=== PATIENT | male | born 1975 | race Caucasian/White ===

== ENCOUNTER 2022-03-09 08:38 | Outpatient (CLI) | payer OTHER, SELFPAY ==
[2022-03-09 15:18] LABS: Albumin* 4.7 g/dL (3.3-5.0)
[2022-03-09 15:20] LABS: Cholesterol* 153 mg/dL (90-199)
[2022-03-09 15:21] LABS: Alanine Aminotransferase* 29 U/L (4-50); Alkaline Phosphatase* 107 U/L (40-150); Aspartate Amino Transferase* 24 U/L (12-35); Bilirubin Direct* 0.2 mg/dL (0.0-0.5); Bilirubin Total* 0.8 mg/dL (0.1-1.5); HDL Cholesterol* 31 mg/dL (>=40); LDL Cholesterol Calculated 86 mg/dL (<100); Total Protein* 7.5 g/dL (6.0-8.3); Triglycerides* 180 mg/dL (40-149)
[2022-03-09 15:50] LABS: PSA Screen* 0.42 ng/mL (0.10-4.00)
[2022-03-11 11:51] LABS: Sex Hormone Binding Globulin 30 nmol/L (17-56); Testosterone, Adult Male 314 ng/dL (300-890); Testosterone, Free Calculation 60 pg/mL (47-244); Testosterone, Percentage Free 1.9 % (1.6-2.9)
== END 2022-03-09 08:39 | disposition home or self-care (01) ==
PROVIDERS: PCP Family Medicine; Visit Provider Family Medicine
DX: Z00.00 Encounter for general adult medical examination without abnormal findings (principal); F41.8 Other specified anxiety disorders; I10 Essential (primary) hypertension; R53.83 Other fatigue; Z12.5 Encounter for screening for malignant neoplasm of prostate; Z13.6 Encounter for screening for cardiovascular disorders
CPT/HCPCS: 80061; 80076; 84153; 84270; 84402; 84403

== ENCOUNTER 2023-01-12 16:43 | Outpatient (CLI) | payer OTHER, SELFPAY | END 2023-01-12 16:44 | disposition home or self-care (01) | LOC: LKVREF 16:44 | PROVIDERS: PCP Family Medicine; Visit Provider Family Medicine | DX: E87.6 Hypokalemia (principal); R53.83 Other fatigue; R63.5 Abnormal weight gain | CPT/HCPCS: 84443 ==

== ENCOUNTER 2023-02-15 16:29 | Outpatient (CLI) | payer OTHER, SELFPAY | END 2023-02-15 16:30 | disposition home or self-care (01) | LOC: LKVREF 16:30 | PROVIDERS: PCP Family Medicine; Visit Provider Family Medicine | DX: E87.6 Hypokalemia (principal); R63.5 Abnormal weight gain; R53.83 Other fatigue; I10 Essential (primary) hypertension; I49.9 Cardiac arrhythmia, unspecified; R60.0 Localized edema | CPT/HCPCS: 80053; 80061; 83880; 84270; 84402; 84403 ==

== ENCOUNTER 2023-03-14 07:30 | Outpatient (CLI) | payer OTHER, SELFPAY ==
[2023-03-14] MEDS: PERFLUTREN LIPID MICROSPHERES 2 ML VIAL IV (09:00)
--- NOTE | 2023-03-14 09:09 | PC.NURSE ---
20G started in right hand, Definity given for echo, iv remoced intact.
== END 2023-03-14 07:31 | disposition home or self-care (01) ==
LOC: RAD 07:32
PROVIDERS: PCP Family Medicine; Visit Provider Family Medicine
DX: I49.9 Cardiac arrhythmia, unspecified (principal)
CPT/HCPCS: 93306; Q9957

== ENCOUNTER 2023-09-17 08:17 | Outpatient (CLI) | payer OTHER, SELFPAY | END 2023-09-17 08:18 | disposition home or self-care (01) | LOC: NFLDREF 09-19 00:14 | PROVIDERS: PCP Family Medicine; Referring Provider Family Medicine; Visit Provider Family Medicine | DX: R79.89 Other specified abnormal findings of blood chemistry (principal) | CPT/HCPCS: 80053; 84270; 84402; 84403 ==

== ENCOUNTER 2024-04-07 14:08 | Emergency (ER) | payer OTHER, SELFPAY ==
--- OUTSIDE RECORDS SUMMARY | 2024-04-07 14:11 | XMS_ITS | Clinical Summary ---
Author Organization [facility] Address [address] [address] Phone Care Team Providers Care Sausage Stringer Name Role Phone Unavailable Primary Care Provider Unavailabl e Allergies No known active allergies Medications No known medications Active Problems No known active problems Social History Tobacco Use Types Packs/Day Years Used Date Smoking Tobacco: Never Assessed Sex and Gender Information Value Date Recorded Sex Assigned at Not on file Legal Sex Male 5:42 PM PATTERN DESIGNER Gender Identity Not on file Sexual Orientation Not on file Obstetrics History Last Filed Vital Signs Vital Sign Reading Time Taken Comments Blood Pressure 174/103 04/10/2022 7:30 PM PATTERN DESIGNER Pulse 90 04/10/2022 6:07 PM PATTERN DESIGNER Temperature 36.6 C (97.8 F) 04/10/2022 6:07 PM PATTERN DESIGNER Respiratory Rate 18 04/10/2022 6:07 PM PATTERN DESIGNER Oxygen Saturation 99% 04/10/2022 6:07 PM PATTERN DESIGNER Inhaled Oxygen Concentration - - Weight 95.3 kg (210 lb) 04/10/2022 6:07 PM PATTERN DESIGNER Height 167.6 cm (5' 6) 04/10/2022 6:07 PM PATTERN DESIGNER Body Mass Index 33.89 04/10/2022 6:07 PM PATTERN DESIGNER Plan of Treatment Health Maintenance Due Date Last Done Comments CT Colonography 1975 Cologuard 1975 Colonoscopy 1975 Colorectal Cancer Screening 1975 FIT/FOBT 1975 Sigmoidoscopy 1975 Hepatitis B Vaccine (Standin g Order) (1 of 3 - 19+ 3-dose series) 07/31/1994 PERTUSSIS (Standing Order) 07/31/1994 TETANUS (Standing Order) 07/31/1994 COVID-19 Vaccine (2023-2 5 season) 2023 Influenza Vaccine Seasonal (Standing Order) (#1) 2023 HPV Vaccine (Standing Order) Aged Out No longer eligible based on patient's age to complete this topic Pneumococcal/PCV20 Vaccine: Pediatrics (2-5 yrs) and At-Risk Patients (6-49 yrs) (Standing Order) Aged Out No longer eligible b ased on patient's age to complete this topic Insurance FRANKLIN Cunningham [id number] [facility]
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
--- OUTSIDE RECORDS SUMMARY | 2024-04-07 14:11 | XMS_ITS | Encounter Summary ---
Author Organization [facility] Address [address] [place] [address] Care Team Providers Care Office Services Manager Name Role Phone Jose Hutson MD Primary Care Provider [phone] [phone] Encounter Details Date Type Department Care Team (Late st Contact Info) Description 07/24/2016 Consent for Procedure/Treatme nt [facility] INFORMED CONSENT RECORD Social History Tobacco Use Types Packs/Day Years Used Date Smoking Tobacco: Never Alcohol Use Standard Drinks/Week Comments Yes 0 (1 standard drink = 0.6 oz pur e alcohol) Rarely Sex and Gender Information Value Date Recorded Sex Assigned at Not on file Gender Identity Not on file Sexual Orientation Not on file documented as of this encounter Plan of Treatment Not on file documented as of this encounter Visit Diagnoses Not on filedocumented in this encounter Additional Health Concerns Infection Onset Date Last Indicated Resolved Time R/O COVID19 09/02/2019 09/02/2019 09/02/2019 10:1 7 PM CDT COVID19 09/02/2019 09/02/2019 09/23/2019 3:17 AM CDT documented as of this encounter Care Teams Office Services Manager Relationship Specialty Start Date End Date Jose Hutson MD [address] [place] [address] PCP - General Family Practice 07/23/16 documented as of this encounter
--- OUTSIDE RECORDS SUMMARY | 2024-04-07 14:11 | XMS_ITS | Encounter Summary ---
Author Organization [facility] Address [address] [place] [address] Care Team Providers Care Web Ui Software Engineer Name Role Phone Jose Hutson MD Primary Care Provider [phone] [phone] Encounter Details Date Type Department Care Team (Late st Contact Info) Description 09/23/2019 Refill Order [facility] 435 [facility] [place], [place] [id number] Gunnar Bautista MD 435 [place], [place] [id number] Social History Tobacco Use Types Packs/Day Years [...] documented as of this encounter Visit Diagnoses Diagnosis Encounter for long-term (current) use of medications- Primary Encounter for long-term (current) use of other medications documented in this encounter Additional Health Concerns Infection Onset Date Last Indicated Resolved Time COVID19 09/02/2019 09/02/2019 09/23/2019 3:17 AM CDT documented as of this encounter Care Teams Web Ui Software Engineer Relationship Specialty Start Date End Date Jose Hutson MD [address] [place] [address] PCP - General Family Practice 07/23/16 documented as of this encounter
--- OUTSIDE RECORDS SUMMARY | 2024-04-07 14:11 | XMS_ITS | Encounter Summary ---
Author Organization [facility] Address [address] [place] [address] Care Team Providers Care Personnel Representative Name Role Phone Jose Hutson MD Primary Care Provider [phone] [phone] Encounter Details Date Type Department Care Team (Late st Contact Info) Description 01/24/2017 Consent for Procedure/Treatme nt [facility] INFORMED [...] documented as of this encounter Care Teams Personnel Representative Relationship Specialty Start Date End Date Jose Hutson MD [address] [place] [address] PCP - General Family Practice 07/23/16 documented as of this encounter
--- OUTSIDE RECORDS SUMMARY | 2024-04-07 14:11 | XMS_ITS | Encounter Summary ---
Author Organization [facility] Address [address] [place] [address] Care Team Providers Care Keyboarding Clerk Name Role Phone Jose Hutson MD Primary Care Provider [phone] [phone] Encounter Details Date Type Department Care Team (Late st Contact Info) Description 01/08/2019 Refill Order [facility] [address] [address] [place] [address]. [place], [place] [phone] Gunnar Bautista MD 435 [place], [place] [phone] Social History Tobacco Use Types Packs/Day Years [...] documented as of this encounter Care Teams Keyboarding Clerk Relationship Specialty Start Date End Date Jose Hutson MD [address] [place] [address] PCP - General Family Practice 07/23/16 documented as of this encounter
--- OUTSIDE RECORDS SUMMARY | 2024-04-07 14:11 | XMS_ITS | Encounter Summary ---
[facility] Organization [facility] Address [address] [place] [address] Care Team Providers Care Support Group Manager Name Role Phone Jose Hutson MD Primary Care Provider [phone] [phone] Encounter Details Date Type Department Care Team (Late st Contact Info) Description 01/23/2018 Correspondence [facility] Radiology [address] [place] [address] Radiology, Provider MRI SAFETY SHEET AND COMPATIBILITY FORM Social History Tobacco Use Types Packs/Day Years [...] documented as of this encounter Care Teams Support Group Manager Relationship Specialty Start Date End Date Jose Hutson MD [address] [place] [address] PCP - General Family Practice 07/23/16 documented as of this encounter
--- OUTSIDE RECORDS SUMMARY | 2024-04-07 14:11 | XMS_ITS | Clinical Summary ---
Author Organization [facility] Address [place], [place] [address] Care Team Providers Care Netting Inspector Name Role Phone Clinic, No Pcp Or Primary Care Provider Unavaila ble Allergies Active Allergy Reactions Criticality Noted Date Comments Dionisio Inhibitors Cough 04/19/2015 Amphetamine Nausea Only 04/19/2015 Dextroamphetamine-Ampheta mine Nausea Only 04/19/2015 Hydrocodone-Acetaminophen Itching 04/21/2015 Itching when he takes it at night . 2 pills not 1 Oxycodone-Acetaminophen Itching 04/21/2015 States itches at night with 2 pills not 1; Also hydrocodone and Tramadol at night with 2 pills Medications traMADol (ULTRAM) 50 mg tablet Take 50 mg by mouth every 6 hours if needed for Pain. Active QUEtiapine (SEROQUEL) 50 mg tablet Take 50 mg by mouth at bedtime. Active acetaminophen (TYLENOL) 325 mg tabletIndicati ons:Herniated nucleus pulposus, cervical,Steno sis, cervical spine Take 2 tablets by mouth every 6 hours if needed for Pain. Max acetaminophen dose: 4000mg in 24 hrs. 120 tablet 6 Active busPIRone (BUSPAR) 30 mg tablet Take 30 mg by mouth two times daily. 4 Active hydroCHLOROthi azide (HCTZ) 25 mg tablet Take 25 mg by mouth once daily. 3 Active clonazePAM (KLONOPIN) 1 mg tablet Take 1 mg by mouth at bedtime. 3 Active DULoxetine (CYMBALTA) 30 mg Delayed-releas e capsule Take 30 mg by mouth once daily. 3 Active losartan-hydro chlorothiazide (Hyzaar) 100-25 mg tablet Take 1 Tablet by mouth once daily. 4 Active carvediloL (Coreg) 12.5 mg tabletIndicati ons:Hypertensi on Take 1 Tablet (12.5 mg) by mouth two times daily. 180 Tablet 3 4 Active Active Problems Problem Noted Date Diagnosed Date Herniated nucleus pulposus, cervical 04/21/2015 Stenosis, cervical spine 04/21/2015 Social History Tobacco Use Types Packs/Day Years Used Date Smoking Tobacco: Never Alcohol Use Standard Drinks/Week Comments Yes 2 (1 standard drink = 0.6 oz pur e alcohol) Social Connections Answer Date Recorded Frequency of Communication with Friends and Fami ly Not on file 05/25/2023 Sex and Gender Information Value Date Recorded Sex Assigned at Not on file Legal Sex Male 7:53 AM BIOMETRICS TECHNICIAN Gender Identity Not on file Sexual Orientation Not on file Obstetrics History Last Filed Vital Signs Vital Sign Reading Time Taken Comments Blood Pressure 122/90 05/25/2023 2:12 PM CDT Pulse 100 05/25/2023 2:12 PM CDT Temperature 36.7 C (98 F) 04/15/2020 4:00 PM BIOMETRICS TECHNICIAN Respiratory Rate 14 05/25/2023 2:12 PM CDT Oxygen Saturation 95% 04/15/2020 4:00 PM BIOMETRICS TECHNICIAN Inhaled Oxygen Concentration - - Weight 107.5 kg (237 lb) 05/25/2023 2:12 PM CDT Height 167.6 cm (5' 6) 04/15/2020 4:00 PM BIOMETRICS TECHNICIAN Body Mass Index 38.25 04/15/2020 4:00 PM BIOMETRICS TECHNICIAN Plan of Treatment Health Maintenance Due Date Last Done Comments Tdap 07/31/1986 Depression screening for age 12+ 1987 HIV for age 15-65 07/31/1990 BMI (ht and wt on same day) for age 18+ 07/31/1993 Hepatitis C screening for ag e 18-79 07/31/1993 Tetanus booster 1995 Colonoscopy through age 75 07/31/2020 Lipids for age 45-75 07/31/2020 COVID-19 vaccine series ( season) 2023 11/26/2020, 10/19/2020 Influenza for age 9-49 10/28/2023 Pneumococcal series for age 6-49 Aged Out No longer eligible b ased on patient's age to complete this topic Medical Devices Implanted Type Area Radio News Writer Device Identifier Shelf Expiration Date Model / Serial / Lot [id number] bone Cerv 7mm 4deg Sea Girt W/P [[id number]] Implanted:Qty: 1 on 04/21/2015 by Louie Marion MD at [facility] Explanted:at [facility] (Quantity not on file) Spine [employer] Sp[employer] 11/17/2019 [id number] / [id number] / [id number] Matrix .5cc Dbx Putty Dbm [[id number]] Implanted:Qty: 1 on 04/21/2015 by Louie Marion MD at [facility] Explanted:at [facility] (Quantity not on file) Spine Musculoskeletal Transplant 11/23/2016 [id number]# / [id number] / Plate Cerv 1lvl 14mm Aviator Ant - [id number] Implanted:Qty: 1 on 04/21/2015 by Louie Marion MD at [facility] Spine [employer] [id number] / / Screw Cerv Ant 4.0x14mm Aviator Va Slf Drill - [id number] Implanted:Qty: 4 on 04/21/2015 by Louie Marion MD at [facility] Spine [employer] [id number] / / Insurance Advance Directives * Full Code (Latest Code Status on File) Date Activated Date Inactivated Comments 04/21/2015 12:13 PM 04/22/2015 2:22 PM * Full Code Date Activated Date Inactivated Comments 04/21/2015 8:27 AM 04/21/2015 12:13 PM Care Teams Netting Inspector Relationship Specialty Start Date End Date Clinic, No Pcp Or . PCP - General 04/15/20
--- OUTSIDE RECORDS SUMMARY | 2024-04-07 14:11 | XMS_ITS | Encounter Summary ---
Author Organization [facility] Address [address] [place] [address] Care Team Providers Care English Instructor Name Role Phone Jose Hutson MD Primary Care Provider [phone] [phone] Encounter Details Date Type Department Care Team (Late st Contact Info) Description 07/24/2016 Consent for Procedure/Treatme nt [facility] CONSENT FOR BLOOD ALCOHOL/DRUG SCREEN Social History Tobacco Use Types Packs/Day Years [...] documented as of this encounter Care Teams English Instructor Relationship Specialty Start Date End Date Jose Hutson MD [address] [place] [address] PCP - General Family Practice 07/23/16 documented as of this encounter
--- OUTSIDE RECORDS SUMMARY | 2024-04-07 14:11 | XMS_ITS | Encounter Summary ---
Author Organization [facility] [address] [place] [address] Care Team Providers Care Supervisor Model Making Name Role Phone Jose Hutson MD Primary Care Provider +1 -[phone] Encounter Details Date Type Department Care Team (Late st Contact Info) Description 12/20/2016 Correspondence [facility] Orthopedics [address] [place] [address] Stacey Hackett, PAEvonneC RETURN TO WORK STATEMENT Social History Tobacco Use Types Packs/Day Years [...] documented as of this encounter Care Teams Supervisor Model Making Relationship Specialty Start Date End Date Jose Hutson MD [address] [place] [address] PCP - General Family Practice 07/23/16 documented as of this encounter
--- OUTSIDE RECORDS SUMMARY | 2024-04-07 14:11 | XMS_ITS | Encounter Summary ---
[facility] Address [address] [place] [address] Care Team Providers Care Tool And Die Assembler Name Role Phone Jose Hutson MD Primary Care Provider [phone] -[phone] Encounter Details Date Type Department Care Team (Latest Contact Info) Description 01/24/2017 Consent for Procedure/Treatme nt [facility] [address] [facility] [address] [place] [address] Gerald Antunez MD [address] [place] [address] INFORMED CONSENT FOR TREATMENT Social History Tobacco Use Types Packs/Day Years [...] documented as of this encounter Care Teams Tool And Die Assembler Relationship Specialty Start Date End Date Jose Hutson MD [address] [place] [address] PCP - General Family Practice 07/23/16 documented as of this encounter
--- OUTSIDE RECORDS SUMMARY | 2024-04-07 14:11 | XMS_ITS | Continuity of Care Document ---
Author Organization [facility] Address [address] [place] [address] Phone Care Team Providers Care Supervisor Hospitality House Name Role Phone Louie Marion MD Unavailab le Allergies, Adverse Reactions, Alerts Substance Reaction Status Criticality HYDROCODONE BITARTRATE Active No In formation acetaminophen Active No Information hydrocodone Active No Information Medications Medication Instructions Dosage Effective Dates (start - stop) Status Comments Medrol (Jarad) 4 mg tablets in a dose pack take by Oral route as written on package Not Available - Active tramadol 50 mg tablet take 1-2 tablets by oral route every 4-6 hours as needed - Active Neurontin 300 mg capsule take 1 capsule 3 times daily - Active oxycodone 5 mg tablet take 1 tablet by oral route every 4 - 6 hours as needed 5 MG - Active ibuprofen 800 mg tablet take 1 tablet by oral route 3 times every day with food 800 MG - Active cyclobenzaprine 10 mg tablet take 1 tablet by oral route up to 3 times every day as needed for muscle spasm - Active quetiapine 50 mg tablet - Active amlodipine 5 mg tablet - Act sebastian losartan 50 mg tablet - Acti ve methylphenidate 10 mg tablet - Active Procedures Procedure Date Office/Outpatient Visit,Est, Mod 2015 X-Ray Exam Of Spine, Single View 2015 Postop Followup Visit X-Ray Exam Of Spine, Single View 2015 Postop Followup Visit X-Ray Exam Of Spine, Single View 2015 Neck Spine Fuse & Removal Addl 16 Insert Spine Fix Dev, Ant, 2-3 Seg Allograft, Spine Surg, Structural Allograft, Spine Surg, Morselized Pa Neck Spine Fuse & Removal Addl Pa Assist Insert Spine Fix Dev, Ant, 2-3 Seg Pre Op Office/Outpatient Visit, 016 X-Ray Exam Of Neck Spine2-3 Views Office/Outpatient Visit,Est, Mod 2015 Office/Outpatient Visit,Est, Mod 2014 Office/Outpatient Visit,New, Mod 2014 Advance Directives Directive Yes / No Effective Date File Name No Information Encounters Encounter Description Practice Location Reason(s) For Visit Diagnoses Date Provider Providers Copied on Encounter [facility], [address], [facility] [place], [place], [id number] , [place] tel: [phone] [facility] No Information 7 [facility], [address] [place] [address], [address], [facility] [place], [place], [id number] , [place]. tel: [phone] Office/Outpa tient Visit,Est, Mod [facility], [address], [place], [id number] , [place] tel: [phone] [facility] Radiculopathy, cervical region 6 [facility], [address] [place] [address], [address], [facility] [place], [place], [id number] , [place]. tel: [phone] [facility], [address], [facility] [place], [place], [id number] , [place] tel: [phone] [facility] OverweightEssenti al (primary) hypertensionEncou nter for other specified surgical aftercare 6 [facility], [address], [address], [facility] [place], [place], [id number] , [place]. tel: [phone] [facility], [address], [place], [id number] , [place] tel: [phone] [facility] OverweightEncount er for other specified surgical aftercare 6 [facility]. [facility], [address] [place] [address], [address], [place], [id number] , [place]. tel: [phone] [facility], [address], [place], [id number] , [place] tel: [phone] [facility] No Information 6 [facility] er. [facility], [address] [place] [address], [address], [place], [place], [id number] , [place]. tel: [phone] Pre Op Office/Outpa tient Visit, [facility], [address], [place], [id number] , [place] tel: [phone] [facility] OverweightOther cervical disc displacement of mid-cervical region 6 [facility] er. [facility], [address] [place] [address], [address], [place], [id number] , [place]. tel: [phone] [facility], [address], [place], [id number] , [place] tel: [phone] [facility] No Information 6 Adrián Stovall. [facility], [address] [place] [address] [address], [place], [id number] , [place]. tel: [phone] Office/Outpa tient Visit,Est, Mod [facility], [address], [place], [id number] , [place] tel: [phone] [facility] Right arm pain (chief complaint) OverweightEssenti al (primary) hypertensionOther cervical disc displacement of mid-cervical regionSpinal stenosis of cervical region 6 [facility], [address] [place] [address], [address], [place], [place], [address] , . tel: [phone] Office/Outpa tient Visit,Est, Mod [facility], [address], [place], [id number] , tel: [phone] [facility] Spinal stenosis, cervical regionRadiculopat hy, cervical regionOther C5-C6 cervical disc displacement 5 [facility], [address], [facility] [place], [id number] , . tel: [phone] Office/Outpa tient Visit,New, Mod [facility], [address], [facility] [place], [id number] , tel: [phone] [facility] Other C5-C6 cervical disc displacementSpina l stenosis, cervical regionRadiculopat hy, cervical region 5 [facility]. [facility], [address], [place], [place], [id number] , . tel: [phone] Family History Family Member Type Diagnosis Age At Onset No Information Payers Payer name Insurance type Covered democrat ID Authorluz marinaa rachel(s) Rhonda's PPO [facility] CI [id number] Social History Type Description Quantity Date Captured Comments Sex Male Smoking Status No Information Chief Complaint And Reason For Visit No Information Reason For Referral Reason For Referral No Information Plan Of Treatment Date Type Action Status Future Order: Radiology Order AP Lateral Cervical (APlatcerv), Ordered on: Ordered History Of Present Illness Encounter Date Complaint History Of Prese nt Illness No Information Functional Status Date Functional Assessmen t No Information Instructions Date Instruction Additional Infor renard Weight Management Education Rela joselyn to Overweight Weight management: I nstructed to return to General Practitioner timeframe: 1 Month. Related to Overweight Weight Management Education Rela joselyn to Overweight Weight management: I nstructed to return to General Practitioner timeframe: 1 Month. Related to Overweight Blood Pressure Management Relate d to Unspecified Essential Hypertension Instructed to return to General Practitioner timeframe: 1 Month. Related to Unspecified Essential Hypertension Weight Management Education Rela joselyn to Overweight Weight management: I nstructed to return to General Practitioner timeframe: 1 Month. Related to Overweight Weight Management Education Rela joselyn to Overweight Weight management: I nstructed to return to General Practitioner timeframe: 1 Month. Related to Overweight Weight Management Education Rela joselyn to Overweight Weight management: I nstructed to return to General Practitioner timeframe: 1 Month. Related to Overweight Blood Pressure Management Relate d to Unspecified Essential Hypertension Instructed to return to General Practitioner timeframe: 1 Month. Related to Unspecified Essential Hypertension Assessments Type Assessment Date No Information Patient Care Teams Name Effective Dates (start - stop) Status Members No Information
[2024-04-07 14:51] VITALS: BP 172/112; PULSE 69; RESP 16; TEMP 37.1; O2SAT 98; BMI 34.9
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
--- NOTE | 2024-04-07 16:34 | CRLHL7_ITS ---
For Patients: As a result of the Century Cures Act, medical imaging exams and procedure reports are released immediately into your electronic medical record. You may view this report before your referring provider. If you have questions, please contact your health care provider. Indication: Chest pain and tightness, high blood pressure Comparison: None available. Technique: Single AP view chest Findings: There is mild interstitial prominence. There is no focal consolidation, effusion, or pneumothorax. The cardiac silhouette is mildly prominent. The bony thorax is grossly intact. Impression: Mild interstitial thickening which may represent minimal pulmonary vascular congestion. Dictated by Joe Linares MD @ 04/07/2024 5:16:39 PM (Electronically Signed)
--- OUTSIDE RECORDS SUMMARY | 2024-04-07 16:42 | XMS_ITS | Encounter Summary ---
[facility] Address [address] [place] [id number] Care Team Providers Care Reimbursement Director Name Role Phone Jose Hutson MD Primary Care Provider [phone] Encounter Details Date Type Department Care Team (Latest Contact Info) Description 01/24/2017 Consent for Procedure/Treatme nt [facility] [address] [place] [id number] Gerald Antunez MD [address] [place] [id number] INFORMED CONSENT FOR TREATMENT Social History Tobacco [...] documented as of this encounter Care Teams Reimbursement Director Relationship Specialty Start Date End Date Jose Hutson MD [address] [place] [address] PCP - General Family Practice 07/23/16 documented as of this encounter
--- OUTSIDE RECORDS SUMMARY | 2024-04-07 16:42 | XMS_ITS | Encounter Summary ---
Author Organization [facility] Address [address] [place] [id number] Care Team Providers Care Field Support Technician Name Role Phone Jose Hutson MD Primary Care Provider [phone] Encounter Details Date Type Department Care Team [...] documented as of this encounter Care Teams Field Support Technician Relationship Specialty Start Date End Date Jose Hutson MD [address] [place] [address] PCP - General Family Practice 07/23/16 documented as of this encounter
--- OUTSIDE RECORDS SUMMARY | 2024-04-07 16:42 | XMS_ITS | Continuity of Care Document ---
Author Organization [facility] Address [address] [place] [address] Phone Care Team Providers Care Hotel Controller Name Role Phone Louie Marion MD Unavailab [...] on Encounter [facility], [address], [facility] [place], [place], [id number] , [place] tel: [phone] [facility] No Information 7 [facility], [address] [place] [address], [address], [facility] [place], [address] , [place]. tel: [phone] Office/Outpa tient Visit,Est, Mod [facility], [address], [place], [id number] , [place] tel: [phone] [facility] Radiculopathy, cervical region 6 [facility], [address] [place] [address], [address], [facility] [place], [address] , [place]. tel: [phone] [facility], [address], [facility] [place], [address] , [place] tel: [phone] [facility] OverweightEssenti al (primary) hypertensionEncou nter for other specified surgical aftercare 6 [facility], [address], [address], [facility] [place], [address] , [place]. tel: [phone] [facility], [address], [place], [address] , [place] tel: [phone] [facility] OverweightEncount er for other specified surgical aftercare 6 Marion Adrián er. [facility], [address] [place] [address], [address], [place], [place], [address] , [place]. tel: [phone] [facility], [address], [place], [address] , [place] tel: [phone] [facility] No Information 6 [facility] er. [facility], [address] [place] [address], [address], [place], [address] , [place]. tel: [phone] Pre Op Office/Outpa tient Visit, [facility], [address], [place], [address] , [place] tel: [phone] [facility] OverweightOther cervical disc displacement of mid-cervical region 6 [facility] er. [facility], [address] [place] [address], [address], [place], [address] , [place]. tel: [phone] [facility], [address], [place], [address] , [place] tel: [phone] [facility] No Information 6 Adrián Stovall. [facility], [address] [place] [address] [address], [place], [address] , [place]. tel: [phone] Office/Outpa tient Visit,Est, Mod [facility], [address], [place], [address] , [place] tel: [phone] [facility] Right arm pain (chief complaint) OverweightEssenti al (primary) hypertensionOther cervical disc displacement of mid-cervical regionSpinal stenosis of cervical region 6 [facility], [address] [place] [address], [address], [place], [address] , . tel: [phone] Office/Outpa tient Visit,Est, Mod [facility], [address], [place], [address] , tel: [phone] [facility] Spinal stenosis, cervical regionRadiculopat hy, cervical regionOther C5-C6 cervical disc displacement 5 [facility], [address], [facility] [place], [address] , . tel: [phone] Office/Outpa tient Visit,New, Mod [facility], [address], [facility] [place], [address] , tel: [phone] [facility] Other C5-C6 cervical disc displacementSpina l stenosis, cervical regionRadiculopat hy, cervical region 5 [facility]. [facility], [address], [place], [place], [address] , . tel: [phone] Family History Family Member Type Diagnosis Age At Onset No Information Payers Payer name Insurance type Covered green party ID Authorluz marinaa rachel(s) Rhonda's PPO [facility] [id number] Social History Type Description Quantity Date Captured [...]
--- OUTSIDE RECORDS SUMMARY | 2024-04-07 16:42 | XMS_ITS | Clinical Summary ---
Author Organization [facility] Address [place], [place] [address] Care Team Providers Care Fiberglass Auto Body Repairer Name Role Phone Clinic, No Pcp Or [...] on file Legal Sex Male 7:53 AM POWDER ROOM ATTENDANT Gender Identity Not on file Sexual Orientation Not on file Obstetrics History Last Filed Vital Signs Vital Sign Reading Time Taken Comments Blood Pressure 122/90 05/25/2023 2:12 PM CDT Pulse 100 05/25/2023 2:12 PM CDT Temperature 36.7 C (98 F) 04/15/2020 4:00 PM POWDER ROOM ATTENDANT Respiratory Rate 14 05/25/2023 2:12 PM CDT Oxygen Saturation 95% 04/15/2020 4:00 PM POWDER ROOM ATTENDANT Inhaled Oxygen Concentration - - Weight 107.5 kg (237 lb) 05/25/2023 2:12 PM CDT Height 167.6 cm (5' 6) 04/15/2020 4:00 PM POWDER ROOM ATTENDANT Body Mass Index 38.25 04/15/2020 4:00 PM POWDER ROOM ATTENDANT Plan of Treatment Health Maintenance Due Date [...] this topic Medical Devices Implanted Type Area Airplane Gastank Liner Assembler Device Identifier Shelf Expiration Date Model / Serial / Lot [id number] bone Cerv 7mm 4deg [place] W/P [[id number]] Implanted:Qty: 1 on 04/21/2015 by Louie Marion MD at [facility] Explanted:at [facility] (Quantity not on file) Spine [employer] 11/17/2019 [id number] / [id number] / [id number] Matrix .5cc Dbx Putty Dbm [[id number]] Implanted:Qty: 1 on 04/21/2015 by Louie Marion MD at [facility] Explanted:at [facility] (Quantity not on file) Spine Musculoskeletal Transplant 11/23/2016 [id number]# / [id number] / Plate Cerv 1lvl 14mm Aviator Ant - [id number] Implanted:Qty: 1 on 04/21/2015 by Louie Marion MD at [facility] Spine [employer] [id number] / / Screw Cerv Ant 4.0x14mm Aviator Va Slf Drill - [id number] Implanted:Qty: 4 on 04/21/2015 by Louie Marion MD at [facility] Spine [employer] [id number] / / Insurance Advance Directives * Full Code (Latest Code Status on File) Date Activated Date Inactivated Comments 04/21/2015 12:13 PM 04/22/2015 2:22 PM * Full Code Date Activated Date Inactivated Comments 04/21/2015 8:27 AM 04/21/2015 12:13 PM Care Teams Fiberglass Auto Body Repairer Relationship Specialty Start Date End Date Clinic, No Pcp Or . PCP - General 04/15/20
--- OUTSIDE RECORDS SUMMARY | 2024-04-07 16:42 | XMS_ITS | Encounter Summary ---
Author Organization [facility] Address [address] [place] [address] Care Team Providers Care Medical Physicist Name Role Phone Jose Hutson MD Primary Care Provider [phone] Encounter Details Date Type Department Care Team [...] documented as of this encounter Care Teams Medical Physicist Relationship Specialty Start Date End Date Jose Hutson MD [address] [place] [address] PCP - General Family Practice 07/23/16 documented as of this encounter
--- OUTSIDE RECORDS SUMMARY | 2024-04-07 16:42 | XMS_ITS | Encounter Summary ---
Author Organization [facility] Address [address] [place] [address] Care Team Providers Care Looping Machine Operator Name Role Phone Jose Hutson MD Primary Care Provider [phone] Encounter Details Date Type Department Care Team (Late st Contact Info) Description 01/23/[address] [facility] Radiology [address] [place] [address] Radiology, Provider MRI SAFETY SHEET AND COMPATIBILITY [...] documented as of this encounter Care Teams Looping Machine Operator Relationship Specialty Start Date End Date Jose Hutson MD [address] [place] [address] PCP - General Family Practice 07/23/16 documented as of this encounter
--- OUTSIDE RECORDS SUMMARY | 2024-04-07 16:42 | XMS_ITS | Encounter Summary ---
Author Organization [facility] [address] [place] [address] Care Team Providers Care Brake Reliner Name Role Phone Jose Hutson MD Primary Care Provider [phone] Encounter Details Date Type Department Care Team (Late st Contact Info) Description 12/20/2016 Correspondence [facility] [address] [place] [address] Stacey Hackett, PAEvonneC RETURN TO WORK STATEMENT [...] documented as of this encounter Care Teams Brake Reliner Relationship Specialty Start Date End Date Jose Hutson MD [address] [place] [address] PCP - General Family Practice 07/23/16 documented as of this encounter
--- OUTSIDE RECORDS SUMMARY | 2024-04-07 16:42 | XMS_ITS | Encounter Summary ---
Author Organization [facility] Address [address] [place] [address] Care Team Providers Care Professional Architect Name Role Phone Jose Hutson MD Primary Care Provider [phone] Encounter Details Date Type Department Care Team [...] documented as of this encounter Care Teams Professional Architect Relationship Specialty Start Date End Date Jose Hutson MD [address] [place] [address] PCP - General Family Practice 07/23/16 documented as of this encounter
--- OUTSIDE RECORDS SUMMARY | 2024-04-07 16:43 | XMS_ITS | Clinical Summary ---
Author Organization [facility] Address [address] [address] Phone Care Team Providers Care Learning Technologist Name Role Phone Unavailable Primary Care Provider Unavailabl e Allergies No known active allergies Medications No known medications Active Problems No known active problems Social History Tobacco Use Types Packs/Day Years Used Date Smoking Tobacco: Never Assessed Sex and Gender Information Value Date Recorded Sex Assigned at Not on file Legal Sex Male 5:42 PM DIETARY SERVICE AIDE Gender Identity Not on file Sexual Orientation Not on file Obstetrics History Last Filed Vital Signs Vital Sign Reading Time Taken Comments Blood Pressure 174/103 04/10/2022 7:30 PM DIETARY SERVICE AIDE Pulse 90 04/10/2022 6:07 PM DIETARY SERVICE AIDE Temperature 36.6 C (97.8 F) 04/10/2022 6:07 PM DIETARY SERVICE AIDE Respiratory Rate 18 04/10/2022 6:07 PM DIETARY SERVICE AIDE Oxygen Saturation 99% 04/10/2022 6:07 PM DIETARY SERVICE AIDE Inhaled Oxygen Concentration - - Weight 95.3 kg (210 lb) 04/10/2022 6:07 PM DIETARY SERVICE AIDE Height 167.6 cm (5' 6) 04/10/2022 6:07 PM DIETARY SERVICE AIDE Body Mass Index 33.89 04/10/2022 6:07 PM DIETARY SERVICE AIDE Plan of Treatment Health Maintenance Due Date [...] to complete this topic Insurance [place]LIN [place] [id number] [email or web address] [facility]
--- OUTSIDE RECORDS SUMMARY | 2024-04-07 16:43 | XMS_ITS | Clinical Summary ---
[facility] Address [address], [place] [address] Care Team Providers Care Foot Doctor Name Role Phone Jose Hutson MD Primary Care Provider [phone] [phone] Source Comments You are receiving this document as you are listed as the primary care provider,follow-up provider, or the patient has been referred to you for consultation.This is in compliance with the Medicare and[facility] Hospitalcaid EHR Incentive Program,which states Providers who transition their patient to another setting of careor provider of care or refers their patient to another provider of care shouldprovide summary care record for each transition of care or referral. [facility] Allergies Active Allergy Reactions Criticality Noted Date [...] (01/29/2017): Added automatically from request for surgery [id number] Acute traumatic pain 07/24/2016 Multiple fractures of [...] 37.1 C (98.8 F) 02/12/2017 6:15 AM VAMP STITCHER Respiratory Rate 20 02/12/2017 6:15 AM VAMP STITCHER Oxygen Saturation 97% 02/12/2017 6:15 AM VAMP STITCHER Inhaled Oxygen Concentration - - Weight 88.9 kg (196 lb) 04/24/2018 9:53 AM VAMP STITCHER Height 167.6 cm (5' 6) 04/24/2018 9:53 AM VAMP STITCHER Body Mass Index 31.64 04/24/2018 9:53 AM VAMP STITCHER Plan of Treatment Health Maintenance Due Date [...] this topic Medical Devices Implanted Type Area Bathroom Tiling Professional Device Identifier Shelf Expiration Date Model / Serial / Lot Kit Infuse Bone Graft Med - [id number] Implanted:Qty: 1 on 02/08/2017 by Gerald Antunez MD at [facility] BIOLOGIC PELVIS ANTERIOR Medtronic - Sofamor Danek 11/25/2018 [id number] / / [id number] Mps Curved R108 Plate Implanted:Qty: 1 on 07/25/2016 by Gerald Antunez MD at [facility] DEVICE PELVIS [id number] / / Description:8 hole 122.5 mm Berny pelvic plating set Asnis Iii Cannulated Screw 6.5 X 90mm Implanted:Qty: 1 on 07/25/2016 by Gerald Antunez MD at [facility] DEVICE PELVIS [employer] [id number] / / Asnis Iii Cannulated Screw 6.5 X 95mm Implanted:Qty: 1 on 07/25/2016 by Gerald Antunez MD at [facility] DEVICE PELVIS [employer] [id number] / / Asnis Iii Cannulated Screw 8.0 X 90mm Implanted:Qty: 1 on 07/25/2016 by Gerald Antunez MD at [facility] DEVICE PELVIS [employer] [id number] / / Mps Straight Plate 2 Hole Implanted:Qty: 2 on 07/25/2016 by Gerald Antunez MD at [facility] DEVICE PELVIS [employer] [id number] / / Description:reilly berny pe lvic plating set Scr Manjinder Sftp 3.5x36 - [id number] Implanted:Qty: 1 on 07/25/2016 by Gerald Antunez MD at [facility] DEVICE PELVIS [employer] [id number] / / Scr Manjinder Sftp 3.5x40 - [id number] Implanted:Qty: 3 on 07/25/2016 by Gerald Antunez MD at [facility] DEVICE PELVIS [employer] [id number] / / Scr Manjinder Sftp 3.5x50 - [id number] Implanted:Qty: 3 on 07/25/2016 by Gerald Antunez MD at [facility] DEVICE PELVIS [employer] [id number] / / Scr Manjinder Sftp 3.5x55 - [id number] Implanted:Qty: 2 on 07/25/2016 by Gerald Antunez MD at [facility] DEVICE PELVIS [employer] [id number] / / Scr Manjinder Sftp 3.5x60 - [id number] Implanted:Qty: 2 on 07/25/2016 by Gerald Antunez MD at [facility] DEVICE PELVIS [employer] [id number] / / Scr Manjinder Sftp 3.5x85mm - [id number] Implanted:Qty: 1 on 07/25/2016 by Gerald Antunez MD at [facility] DEVICE PELVIS [employer] [id number] / / Washer Asnis Iii 13x1.5 - [id number] Implanted:Qty: 3 on 07/25/2016 by Gerald Antunez MD at [facility] DEVICE PELVIS [employer] [id number] / / Scr Manjinder Sftp 3.5x16 - [id number] Implanted:Qty: 1 on 02/08/2017 by Gerald Antunez MD at [facility] DEVICE PELVIS ANTERIOR [employer] [id number] / / Scr Manjinder Sftp 3.5x26 - [id number] Implanted:Qty: 1 on 02/08/2017 by Gerald Antunez MD at [facility] DEVICE PELVIS ANTERIOR [employer] [id number] / / Scr Manjinder Sftp 3.5x30 - [id number] Implanted:Qty: 1 on 02/08/2017 by Gerald Antunez MD at [facility] DEVICE PELVIS ANTERIOR [employer] [id number] / / Scr Manjinder Sftp 3.5x32 - [id number] Implanted:Qty: 1 on 02/08/2017 by Gerald Antunez MD at [facility] DEVICE PELVIS ANTERIOR [employer] [id number] / / Scr Manjinder Sftp 3.5x36 - [id number] Implanted:Qty: 1 on 02/08/2017 by Gerald Antunez MD at [facility] DEVICE PELVIS ANTERIOR [employer] [id number] / / Scr Manjinder Sftp 3.5x40 - [id number] Implanted:Qty: 3 on 02/08/2017 by Gerald Antunez MD at [facility] DEVICE PELVIS ANTERIOR [employer] [id number] / / Scr Manjinder Sftp 3.5x50 - [id number] Implanted:Qty: 2 on 02/08/2017 by Gerald Antunez MD at [facility] DEVICE PELVIS ANTERIOR [employer] [id number] / / Scr Manjinder Sftp 3.5x60 - [id number] Implanted:Qty: 1 on 02/08/2017 by Gerald Antunez MD at [facility] DEVICE PELVIS ANTERIOR [employer] [id number] / / Scr Manjinder Sftp 3.5x65 - [id number] Implanted:Qty: 1 on 02/08/2017 by Gerald Antunez MD at [facility] DEVICE PELVIS ANTERIOR [employer] [id number] / / Scr Manjinder Sftp 3.5x80 - [id number] Implanted:Qty: 1 on 02/08/2017 by Gerald Antunez MD at [facility] DEVICE PELVIS ANTERIOR [employer] [id number] / / Scr Manjinder Sftp 3.5x110 - [id number] Implanted:Qty: 4 on 02/08/2017 by Gerald Antunez MD at [facility] DEVICE PELVIS ANTERIOR [employer] [id number] / / Mps Curved R108 Plate Implanted:Qty: 1 on 02/08/2017 by Gerald Antunez MD at [facility] DEVICE PELVIS ANTERIOR [employer] [id number] / / Description:5HOLE,74.5MM Mps Curved [id number] Implanted:Qty: 1 on 02/08/2017 by Gerald Antunez MD at [facility] DEVICE PELVIS ANTERIOR [employer] [id number] / / Description:7HOLE, 106.5MM Plt Crvd Pelv 200s242.5 8h - [id number] Implanted:Qty: 1 on 02/08/2017 by Gerald Antunez MD at [facility] DEVICE PELVIS ANTERIOR [employer] [id number] / / Description:8HOLE,122.5MM Scr Manjinder Sftp 4.5x70 - [id number] Implanted:Qty: 2 on 02/08/2017 by Gerald Antunez MD at [facility] DEVICE PELVIS ANTERIOR [employer] [id number] / / Plt Strt Pelv 26.5mm 2h - [id number] Implanted:Qty: 2 on 02/08/2017 by Gerald Antunez MD at [facility] DEVICE PELVIS ANTERIOR [employer] [id number] / / 4.5x54mm Screw Sftp Implanted:Qty: 1 on 02/08/2017 by Gerald Antunez MD at [facility] DEVICE PELVIS ANTERIOR [employer] [id number] / / Advance Directives * Full Code [...] 3:51 AM 07/25/2016 12:20 PM Care Teams Foot Doctor Relationship Specialty Start Date End Date Jose Hutson MD [address] [place] [address] PCP - General Family Practice 07/23/16
--- OUTSIDE RECORDS SUMMARY | 2024-04-07 16:43 | XMS_ITS | Clinical Summary ---
Author Organization [facility] Address [address] [place] [address] Care Team Providers Care Grainer Machine Name Role Phone Ruiz Fischer MD Primary Care Provider [phone] Allergies Active Allergy Reactions Criticality Noted Date [...] (04/18/2022): Added automatically from request for surgery [id number] Closed fracture of transverse process of lumbar [...] on file Legal Sex Male 3:22 AM PRODUCTION ESTIMATOR Gender Identity Not on file Sexual Orientation [...] BASIC METABOLIC PANEL STAT 04/18/2022 8:31 AM PRODUCTION ESTIMATOR LIPID REFLEX TO DIRECT LDL PANEL Add-On 09/20/2020 4:50 PM CDT from Last 3 Months or Most Recently Relevant to Health Maintenance Results * (ABNORMAL) Basic metabolic panel (04/18/2022 8:31 AM PRODUCTION ESTIMATOR) Sodium 137 136 - 145 mmol/L 04/18/2022 9:05 AM [facility] Potassium 3.4 3.4 - 5.3 mmol/L 04/18/2022 9:05 AM [facility] Chloride 97(L) 98 - 107 mmol/L 04/18/2022 9:05 AM [facility] Carbon Dioxide (CO2) 28 22 - 29 mmol/L 04/18/2022 9:05 AM [facility] Anion Gap 12 7 - 15 mmol/L 04/18/2022 9:05 AM [facility] Urea Nitrogen 16.9 6.0 - 20.0 mg/dL 04/18/2022 9:05 AM [facility] Creatinine 1.01 0.67 - 1.17 mg/dL 04/18/2022 9:05 AM [facility] Calcium 8.6 8.6 - 10.0 mg/dL 04/18/2022 9:05 AM [facility] Glucose 130(H) 70 - 99 mg/dL 04/18/2022 9:05 AM [facility] GFR Estimate >90 >60 mL/min/1.7 3m2 04/18/2022 9:05 AM [facility] Comment:eGFR calculated us2020 CKD-EPI equation. Blood BLOOD SPECIMEN / Unknown Venipuncture / Unknown 04/18/2022 8:31 AM PRODUCTION ESTIMATOR 04/18/2022 8:36 AM PRODUCTION ESTIMATOR Luther Duran MD LAB - BLOOD ORDERABLES Final R esult LABORATORY [facility] [address] Lab (1st floor, no room number) [place] [address], [facility] [phone] * (ABNORMAL) Lipid panel reflex to direct [...] LAB - BLOOD ORDERAB LES Final Result [facility] [address] Lab (1st floor, no room number) [place] [address], [facility] [phone] from Last 3 Months or Most Recently Relevant to Health Maintenance Insurance [employer] Care Teams Grainer Machine Relationship Specialty Start Date End Date Ruiz Fischer MD [facility] [address] [place] [address] PCP - General Family Practice 10/11/19
--- OUTSIDE RECORDS SUMMARY | 2024-04-07 16:43 | XMS_ITS | Encounter Summary ---
Author Organization [facility] Address [address] [place] [address] Care Team Providers Care Border Police Name Role Phone Jose Hutson MD Primary Care Provider [phone] Encounter Details Date Type Department Care Team (Late st Contact Info) Description 09/23/2019 Refill Order [facility] [address] [facility]. [place], [place] [id number] Gunnar Bautista MD [address] [place], [place] [id number] Social History Tobacco Use Types Packs/Day Years [...] documented as of this encounter Care Teams Border Police Relationship Specialty Start Date End Date Jose Hutson MD [address] [place] [address] PCP - General Family Practice 07/23/16 documented as of this encounter
--- OUTSIDE RECORDS SUMMARY | 2024-04-07 16:43 | XMS_ITS | Encounter Summary ---
Author Organization [facility] Address [address] [place] [address] Care Team Providers Care Physician Compensation Analyst Name Role Phone Jose Hutson MD Primary Care Provider [phone] Encounter Details Date Type Department Care Team (Late st Contact Info) Description 01/08/2019 Refill Order [facility] [address] [place] [address]. [place], [place] [phone] Gunnar Bautista MD [address] [place], [place] [id number] Social History Tobacco Use Types Packs/Day Years [...] documented as of this encounter Care Teams Physician Compensation Analyst Relationship Specialty Start Date End Date Jose Hutson MD [address] [place] [address] PCP - General Family Practice 07/23/16 documented as of this encounter
[2024-04-07 17:00] VITALS: BP 184/126; PULSE 68; RESP 14; O2SAT 100
[2024-04-07 17:08] LABS: Basophils Absolute Auto 0.03 K/uL (0.00-0.30); Basophils Percent Auto 0.4 % (0.0-3.0); Eosinophils Absolute Auto 0.43 K/uL (0.00-0.50); Eosinophils Percent Auto 6.1 % (0.0-7.0); Hematocrit 58.2 % (37.0-53.0); Hemoglobin* 19.5 gm/dL (13.5-17.5); Immature Granulocytes Abs Auto 0.01 K/uL (0.00-0.30); Immature Granulocytes Pct Auto 0.1 %; Lymphocytes Absolute Auto 1.67 K/uL (0.90-2.90); Lymphocytes Percent Auto 23.6 % (20-44); Mean Corpuscular HGB Conc 34 gm/dL (32-36); Mean Corpuscular Hemoglobin 30 pg (26-34); Mean Corpuscular Volume 89 fL (80-100); Monocytes Percent Auto 8.5 % (0.0-11.0); Neutrophils Absolute Auto 4.34 K/uL (1.7-7.0); Neutrophils Percent Auto 61.3 % (42.0-72.0); Platelet Count* 187 K/uL (140-440); RDW Coefficient of Variation % 13.4 % (11.5-15.5); Red Blood Count 6.56 m/uL (4.30-5.90); White Blood Count* 7.08 K/uL (4.50-11.00)
[2024-04-07 17:18] LABS: Slide Review Reflex No
[2024-04-07 17:21] LABS: Albumin* 4.5 g/dL (3.3-5.0); Chloride* 103 mmol/L (96-114); Sodium* 140 mmol/L (135-149)
[2024-04-07 17:22] LABS: Potassium* 4.5 mmol/L (3.6-5.1)
[2024-04-07 17:24] LABS: Alanine Aminotransferase* 29 U/L (4-50); Alkaline Phosphatase* 73 U/L (40-150); Anion Gap 7 mEq/L (7-15); Aspartate Amino Transferase* 25 U/L (12-35); Bilirubin Direct* 0.3 mg/dL (0.0-0.5); Bilirubin Total* 1.4 mg/dL (0.1-1.5); Blood Urea Nitrogen* 16 mg/dL (5-24); Calcium* 8.3 mg/dL (8.4-10.6); Carbon Dioxide* 30 mmol/L (20-32); Creatinine* 1.1 mg/dL (0.5-1.5); Est. Creatinine Clearance* 74.11; Estimated Glomerular Filt Rate 83 ml/min; Glucose* 90 mg/dL (60-115); Total Protein* 7.4 g/dL (6.0-8.3)
[2024-04-07 17:25] LABS: Appearance Urine Clear (Clear); Bilirubin Urine Negative (Negative); Blood Urine Negative (Negative); Color Urine Yellow (Yellow); Glucose Urine Negative (Negative); Ketones Urine Negative (Negative); Leukocyte Esterase Urine Negative (Negative); Nitrite Urine Negative (Negative); Protein Urine Negative (Negative); Specific Gravity Urine 1.025 (1.000-1.030); Urobilinogen Urine 0.2 (0.2-1.0)
[2024-04-07 17:37] LABS: RBC Urine 0-2 (0-2); WBC Urine 0-2 (0-5)
[2024-04-07 17:57] LABS: Iron* 177 ug/dL (49-181)
[2024-04-07 18:02] VITALS: BP 169/121
[2024-04-07 18:07] LABS: Percent Iron Saturation 51 % (20-50); Total Iron Binding Capacity 347 ug/dL (261-462); Troponin I* < 0.01 ng/mL (0.01-0.04)
[2024-04-07 18:23] LABS: Ferritin* 43.5 ng/mL (17.9-464.0)
[2024-04-07] MEDS: AMLODIPINE 5 MG TABLET PO (18:56)
[2024-04-09 19:23] LABS: Erythropoietin 6 mU/mL (4-27)
[2024-04-17 17:15] LABS: JAK2 Qual Mutation by PCR Not Detected; JAK2 Qual, Source Not Provided
== END 2024-04-07 21:41 | disposition home or self-care (01) ==
PROVIDERS: Family Medicine; Emergency Provider Family Medicine; PCP Family Medicine
DX: I10 Essential (primary) hypertension (principal); D45 Polycythemia vera
CPT/HCPCS: 36415; 71045; 80048; 80076; 81001; 81270; 82668; 82728; 83540; 83550; 84484; 85025; 93005; 99195; 99284; A9270

== ENCOUNTER 2024-09-04 16:25 | Outpatient (CLI) | payer OTHER, SELFPAY | END 2024-09-04 16:26 | disposition home or self-care (01) | PROVIDERS: PCP Family Medicine; Visit Provider Family Medicine | DX: I10 Essential (primary) hypertension (principal); E29.1 Testicular hypofunction; R53.83 Other fatigue; Z12.5 Encounter for screening for malignant neoplasm of prostate | CPT/HCPCS: 80053; 83001; 83002; 84403; G0103 ==

== ENCOUNTER 2024-12-19 10:05 | Outpatient (CLI) | payer OTHER, SELFPAY | END 2024-12-19 10:06 | disposition home or self-care (01) | LOC: NFLDREF 12-20 20:12 | PROVIDERS: PCP Family Medicine; Referring Provider Family Medicine; Visit Provider Family Medicine | DX: R79.89 Other specified abnormal findings of blood chemistry (principal); R53.83 Other fatigue | CPT/HCPCS: 80076; 84270; 84402; 84403 ==